=== PATIENT | male | born 1980 | race Caucasian/White ===

== ENCOUNTER 2019-04-11 19:21 | Observation (INO) | payer BC ==
[~2019-04-11 19:21] MED LIST: Iopamidol-370 76% 500 ML 1 ML ONE
[2019-04-11 20:56] LABS: #Eosinphils 0.1 thou/uL (0.0-0.7); #Lymphocytes 1.5 thou/uL (1.20-3.40); #Monocytes 0.3 thou/uL (0.11-0.59); %Basophils 0.9 % (0.0-1.0); %Eosinophils 1.1 % (0.0-10.0); %Lymphocytes 29.8 % (21.0-51.0); %Monocytes 6.7 % (0.0-10.0); %Neutrophils 61.5 % (42.0-75.0); Hemoglobin 14.5 g/dL (14.0-18.0); Mean Corpuscular HGB CONC 34.8 g/dL (32.0-36.0); Mean Corpuscular Hemoglobin 30.8 pg (27.0-31.0); Mean Corpuscular Volume 88.4 fL (78.0-98.0); Mean Platelet Volume 7.5 fL (7.4-10.4); Platelet Count 229 thou/uL (130-400); RBC Distribution Width 11.8 % (11.5-14.5); Red Blood Cell (RBC) Count 4.71 mill/uL (4.70-6.10); White Blood Cell (WBC) Count 4.9 thou/uL (4.8-10.8)
[2019-04-11 21:03] LABS: INR-International Normal Ratio 0.9; PTT 29.3 SEC (22.9-36.1)
--- NOTE | 2019-04-11 21:07 | CT ---
CT HEAD WITHOUT IV CONTRAST COMPARISON: None HISTORY: Stroke/akathisia. Blurry vision and loss of words at 1300 hours today. Headache. Patient states all symptoms of now resolved. TECHNIQUE: Axial CT imaging at 5 mm intervals from vertex through skull base without contrast FINDINGS: There is no evidence of an acute infarction, hemorrhage, mass effect, or midline shift. There is incr eased density posterior fossa which is most likely related to the tentorium. This has a symmetric appearance and is not thought to be related to subdural hemorrhage. A rounded low-attenuation areas s een within the donna centrally. This is felt to most likely be artifactual and is only seen on single slice thickness. The ventricular system is normal in size, shape, and position. Visualized paranasal sinuses are clear. Osseous structures appear intact. IMPRESSION: 1. No acute intracranial abnormality demonstrated. 2. Low-attenuation area in the central donna felt to most likely be artifactual. However, if patient's symptoms persist, follow-up MRI brain is recommended. 3. Above findings discussed with Dr. Arriaga in the emergency department on 04/11/2019 at 2102 hours.
[2019-04-11 21:11] LABS: ALT (SGPT) 21 U/L (8-55); AST (SGOT) 34 U/L (5-34); Albumin 4.5 g/dL (3.5-5.0); Alkaline Phosphatase 47 U/L (40-110); Anion Gap 12 mmol/L (10-20); BUN (Urea Nitrogen) 26 mg/dL (8.9-20.6); Bilirubin, Total 0.3 mg/dL (0.2-1.2); CK (CPK) 366 U/L (30-200); Calc. Creatinine Clearance 0 mL/min (70-130); Calcium 9.1 mg/dL (7.8-10.44); Carbon Dioxide 22 mmol/L (22-29); Chloride 106 mmol/L (98-107); Estimated GFR-MDRD 59; Globulin 2.5 g/dL (2.4-3.5); Glucose 158 mg/dL (70-105); Potassium 3.3 mmol/L (3.5-5.1); Sodium 137 mmol/L (136-145)
[2019-04-11 21:11] LABS: Acetaminophen Less than 6.0 mcg/mL (10.0-30.0); Alcohol Less than 10 mg/dL (Less than 10); Salicylate Less than 8.0 mg/dL (15.0-30.0)
--- NOTE | 2019-04-11 21:23 | CT ---
EXAM: CT angiogram head and neck with IV contrast and 3-D reconstructions PROVIDED CLINICAL HISTORY: Patient with blurry vision and loss of words around 1300 hours today. Patient reports headache. Patie nt now states symptoms have resolved. COMPARISON: None FINDINGS: There is a common origin of the innominate artery and left common carotid artery each of which appear s patent. Right subclavian artery is not well evaluated due to artifact due to dense contrast in the subclavian vein. There is also limited evaluation of the proximal right common carotid artery aga in related to dense contrast in the venous structures resulting in artifact. Remainder of the right common carotid artery is patent. The left common carotid artery as well as left subclavian artery are patent. Bilateral internal and external carotid arteries are patent. Right vertebral artery is dominant. The vertebral arteries are patent bilaterally. The basilar artery is generally small in caliber but patent. Posterior cerebral arteries are patent b ilaterally. Posterior communicating arteries are small in size but do appear patent as well. Bilateral middle cerebral and anterior cerebral arteries are patent. No focal stenosis or branch occl usion is appreciated. No definite aneurysm is visualized. The dural venous sinuses are patent. On noncontrasted CT scan exam, there was suggestion of a rounded low density area seen within the geovanni s which is not visualized on this exam and was likely artifactual on the noncontrast CT head as previously suggested. Visualized upper lung zones are clear. A tiny subcentimeter hypodense nodule is seen in the left lobe of the thyroid gland. The bilateral parotid and submandibular glands are normal in appearance. Minimal mucosal thickening is seen in the right maxillary antrum. IMPRESSION: 1. Tiny hypodense nodule left lobe of thyroid gland. Nonemergent thyroid ultrasound is suggested for further evaluation. 2. Patent bilateral internal carotid arteries. 3. Patent bilateral vertebral arteries, and the right vertebral artery is dominant. 4. [place] [facility] [place] and vertebrobasilar system appear patent. No focal stenosis or branch occlusion i s appreciated. Above findings discussed Dr. Arriaga in the emergency department on 04/11/2019 at 2119 hours
[2019-04-11] MEDS ORDERED: Aspirin Chewable 81 MG TAB ONE (21:31)
[2019-04-11 21:51] LABS: Amphetamine Not Detected (NotDetected); Barbiturates Screen Not Detected (NotDetected); Benzodiazepine Screen Not Detected (NotDetected); Cocaine Metabolite Screen Not Detected (NotDetected); Medtox Reader # READER 1; Methadone Not Detected (NotDetected); Methamphetamine Not Detected (NotDetected); Opiate Screen Not Detected (NotDetected); Phencyclidine (PCP) Not Detected (NotDetected); THC/Cannabinoid Screen Not Detected (NotDetected); Tricyclic Screen Not Detected (NotDetected)
[2019-04-11 21:52] LABS: Medtox Control Line Valid? VALID (VALID); Oxycodone Screen Not Detected (NotDetected)
--- NOTE | 2019-04-11 22:00 | PDOC.FPRHP ---
- History of Present Illness Chief Complaint: slurred speak and difficulty with words lasting 45 minutes History of Present Illness: 38 y/o M with no diagnosed medical problems who does not see a physician regularly, presents to the ED after a 45 minute episode at work with difficultly findings words as well as slurred speech. PT had blurred vision during this episode. He could not recognize where he was located and felt confused during that time. C/o faint COOK since the episode ended. Improved with pain medications in ER. Denies LH/dzziness, CP, SOB, N/V. Pt c/o of several week hx of off/on R arm numbness and weakness. He thinks this is trouble with "tendons," and states he has had trouble with grasping a ball. ED course: given ASA CTA head: no occlusive vessels visualized in B carotids, vertebral arteries, or [place]. Tiny hypodense nodule on L lobe of thyroid needing outpt f/o with ultrasound. CT head: low attenuation are in central donna, most likely artifact, but needs MRI f/o. No acute findings. - Allergies/Adverse Reactions Allergies Allergy/AdvReac Type Severity Reaction Status Date / Time No Known Allergies Allergy Verified 04/12/19 01:55 - History PMHx: no known medical problems PSHx: none FHx: Father: HTN Social: Drinks 6-9 beer and one pint of whiskey 4 times per week. Denies tobacco or drug use. 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 - Review of Systems General: denies: fever/chills, weight/appetite/sleep changes Eyes: reports: vision changes (blurred). denies: eye pain ENT: denies: nasal congestion Respiratory: denies: cough, shortness of breath Cardiovascular: denies: chest pain, palpitation, edema Gastrointestinal: denies: nausea, vomiting, diarrhea, abdominal pain Genitourinary: denies: dysuria Skin: denies: rashes, lesions Musculoskeletal: denies: pain Neurological: reports: numbness (RUE), weakness (RUE). denies: syncope, seizure - Vital signs BP: 160/53 HR: 70 RR: 19 Tmax: 97.5 Pox: 98% on RA Wt: 117 kg - Physical Exam Constitutional: NAD, awake, alert and oriented, well developed HEENT: normocephalic and atraumatic, PERRLA, EOMI, conjunctiva clear, no scleral icterus, grossly normal vision, grossly normal hearing, MMM, oropharynx clear, good dention Neck: supple, FROM, trachea midline, no LAD, no JVD, no thyromegaly Chest: no-tender to palpation Heart: RRR, normal S1/S2, pulses present, no edema -Heart: soft sys murmur Lungs: CTAB, no respiratory distress, good air movement, no rales/rhonchi, no wheezing, no retractions Abdomen: soft, non-tender, bowel sounds present, no masses/distention, no hernias Musculoskeletal: normal structure, normal tone, ROM grossly normal Neurological: no focal deficit, CN II-XII intact, normal sensation, DTRs 2+, other (intact [id number], [id number] No dysdiadacokinesia) Skin: no rash/lesions, good turgor, capillary refill <2 seconds Heme/Lymphatic: no unusual bruising or bleeding, no purpura, no petechia Psychiatric: normal mood and affect, good judgment and insight, intact recent and remote memory FMR H&P: Results - Labs Result Diagrams: 04/12/19 07:31 04/12/19 07:31 Lab results: WBC 4.9 thou/uL (4.8-10.8) 04/11/19 20:44 Hgb 14.5 g/dL (14.0-18.0) 04/11/19 20:44 Hct 41.6 % (42.0-52.0) L 04/11/19 20:44 MCV 88.4 fL (78.0-98.0) 04/11/19 20:44 Plt Count 229 thou/uL (130-400) 04/11/19 20:44 Neutrophils % 61.5 % (42.0-75.0) 04/11/19 20:44 Sodium 137 mmol/L (136-145) 04/11/19 20:44 Potassium 3.3 mmol/L (3.5-5.1) L 04/11/19 20:44 Chloride 106 mmol/L (98-107) 04/11/19 20:44 Carbon Dioxide 22 mmol/L (22-29) 04/11/19 20:44 BUN 26 mg/dL (8.9-20.6) H 04/11/19 20:44 Creatinine 1.36 mg/dL (0.7-1.3) H 04/11/19 20:44 Glucose 158 mg/dL (70-105) H 04/11/19 20:44 Calcium 9.1 mg/dL (7.8-10.44) 04/11/19 20:44 Total Bilirubin 0.3 mg/dL (0.2-1.2) 04/11/19 20:44 AST 34 U/L (5-34) 04/11/19 20:44 ALT 21 U/L (8-55) 04/11/19 20:44 Alkaline Phosphatase 47 U/L (40-110) 04/11/19 20:44 Creatine Kinase 366 U/L (30-200) H 04/11/19 20:44 Serum Total Protein 7.0 g/dL (6.0-8.3) 04/11/19 20:44 Albumin 4.5 g/dL (3.5-5.0) 04/11/19 20:44 - Radiology Interpretation CT scan - head Status: report reviewed by me (No acute findings. Hypodensity in donna. No occlusive vessles on CTA head.) FMR H&P: A/P - Problem List (1) TIA (transient ischemic attack) Current Visit: Yes Status: Acute Code(s): G45.9 - TRANSIENT CEREBRAL ISCHEMIC ATTACK, UNSPECIFIED (2) Elevated BP without diagnosis of hypertension Current Visit: Yes Status: Acute Code(s): R03.0 - ELEVATED BLOOD-PRESSURE READING, W/O DIAGNOSIS OF HTN (3) Aphasia Current Visit: Yes Status: Resolved Code(s): R47.01 - APHASIA - Plan 38 y/o M admitted to stroke obs for evaluation of Possible TIA/rule out stroke. 1. Resolved global aphasia attack lasting 45 minutes - mixed broca and wernicke's aphasia, now resolved - CTA head: patent B carotids, vertebral arteries, and [place] - CT head: No acute process - Ordered MRI and TTE - Ordered TSH, A1C and FLP 2. Elevated BP without the dx of HTN - Will allow for permissive HTN for 48 hrs post event. - Monitor vitals Q4H - Consider d/c on medication if consistently elevated. 3. Alcohol abuse - ASE protocol, Ativan 1 mg PRN Q6H for alcohol withdrawal Code status: full code Diet: regular diet dvt ppx: SCD's Dispo: stable, admit to stroke obs for TIA stroke r/o. FMR H&P: Upper Level - Plan Date/Time: 04/11/19 2200 I, Viktor Garcia MD, have evaluated this patient and agree with findings/ plan as outlined by unpaid intern resident. Pertinent changes/additions are listed here. CVA vs TIA - CT/CTA negative in ED - Neuro checks - MRI ordered for AM - Permissive HTN - Obtain risk stratification labs HTN - Allow permissive HTN 220/110 for first 24-48 hours if CVA occurred - Likely will need outpatient follow up. CODE STATUS: FULL CODE PCP: CC - None Disposition: Stable, will admit to Stroke Observation for MRI imaging. Addendum - Attending - Attending Attestation Date/Time: 04/12/19 0900 I personally evaluated the patient and discussed the management with Dr. Garcia and David on 04/10. I agree with the History, Examination, Assessment and Plan documented above with any addition or exceptions noted below. No symptoms and unremarkable exam on my evaluation. He did have a headache after the aphasia and blurry vision stopped, which was unilateral, aching. He was not sure if it was associated with photophobia. Complete workup for possible TIA, must also consider a headache syndrome as well.
[2019-04-11] MEDS ORDERED: Lorazepam 2 MG/ML VIAL SLOW IVP PRN (22:52)
[2019-04-12 02:38] VITALS: BMI 36.7
--- NOTE | 2019-04-12 07:15 | PDOC.FM ---
- Subjective Subjective: NAEO. Patient resting comfortably in bed. States all of his symptoms have resolved. He states the entire episode lasted about 45 min - couldnt get out his words, blurred vision. He states this has all resolved. This has never happened to him before. He states that when he stood up in his room he didnt feel any dizziness or instability. He is speaking normally per patient and family. Denies any blurred vision. Denies any weakness, numbness or tingling in any extremities. - Objective MAR Reviewed: Yes Vital Signs & Weight: Vital Signs (12 hours) Temp Pulse Resp BP Pulse Ox 04/12/19 03:48 97.9 F 58 L 16 138/55 L 94 L 04/11/19 23:39 98.4 F 57 L 16 146/69 H 98 Weight Weight 116.12 kg Result Diagrams: 04/12/19 07:31 04/12/19 07:31 Phys Exam - Physical Examination Constitutional: NAD HEENT: PERRLA, moist MMs, sclera anicteric Neck: supple, full ROM Respiratory: clear to auscultation bilateral Cardiovascular: RRR Gastrointestinal: soft Musculoskeletal: no edema Neurological: non-focal, normal sensation, moves all 4 limbs CN II- XII intact, normal 5/5 strength in all extremities Psychiatric: normal affect, A&O x 3 Skin: no rash, normal turgor, cap refill <2 seconds Dx/Plan (1) Elevated BP without diagnosis of hypertension Code(s): R03.0 - ELEVATED BLOOD-PRESSURE READING, W/O DIAGNOSIS OF HTN Status : Acute (2) TIA (transient ischemic attack) Code(s): G45.9 - TRANSIENT CEREBRAL ISCHEMIC ATTACK, UNSPECIFIED Status: Acute (3) Aphasia Code(s): R47.01 - APHASIA Status: Resolved - Plan Plan: CVA vs TIA Patient with dysphagia episode lasting 45min. CT brain showing low- attenuation in the central donna. CTA negative for stenosis. - Neuro checks - MRI and echo pending; will f/u results - Permissive HTN - FLP TG 189, Chol 214, LDL 122, HDL 54 - ASCVD 1.4%. TSH normal. HTN - Likely will need outpatient follow up, can consider starting amlodipine if BPs remain high - Currently allowing for permissive HTN Alcohol Abuse - ASE protocol CODE STATUS: FULL CODE Diet: Reg VTE: lovenox PCP: CC - None Disposition: Stable, if imaging nml likely dc, if abnormal will stay for further management Case discussed with Dr. Barba Addendum - Attending - Attending Attestation Date/Time: 04/12/19 1100 I personally evaluated the patient and discussed the management with Dr. Weller. I agree with the History, Examination, Assessment and Plan documented above with any addition or exceptions noted below. MRI negative. TTE pending. Given his age, will consult cardiology to see if bubble study would be indicated. patient also having periodic runs of sinus bradycardia on tele into low 40s. Appears asymptomatic. Dispo pending recommendations from cardiology. Continue ASA, start amlodipine for BP control as MRI was negative for acute CVA.
[2019-04-12] MEDS ORDERED: Potassium Chloride 20 MEQ TAB PO SCH (07:30)
[2019-04-12 07:36] LABS: #Eosinphils 0.1 thou/uL (0.0-0.7); #Lymphocytes 1.1 thou/uL (1.20-3.40); #Monocytes 0.4 thou/uL (0.11-0.59); #Neutrophils 2.2 thou/uL (1.40-6.50); %Basophils 0.7 % (0.0-1.0); %Eosinophils 1.8 % (0.0-10.0); %Lymphocytes 29.2 % (21.0-51.0); %Monocytes 10.6 % (0.0-10.0); %Neutrophils 57.7 % (42.0-75.0); Hemoglobin 13.8 g/dL (14.0-18.0); Mean Corpuscular HGB CONC 35.5 g/dL (32.0-36.0); Mean Corpuscular Hemoglobin 30.9 pg (27.0-31.0); Platelet Count 195 thou/uL (130-400); RBC Distribution Width 11.8 % (11.5-14.5); Red Blood Cell (RBC) Count 4.47 mill/uL (4.70-6.10); White Blood Cell (WBC) Count 3.8 thou/uL (4.8-10.8)
[2019-04-12 07:49] LABS: Anion Gap 10 mmol/L (10-20); BUN (Urea Nitrogen) 21 mg/dL (8.9-20.6); Calc. Creatinine Clearance 147 mL/min (70-130); Calcium 8.9 mg/dL (7.8-10.44); Carbon Dioxide 23 mmol/L (22-29); Chloride 108 mmol/L (98-107); Estimated GFR-MDRD 73; Glucose 101 mg/dL (70-105); Potassium 3.8 mmol/L (3.5-5.1); Sodium 137 mmol/L (136-145)
[2019-04-12 07:58] VITALS: TEMP 98
--- NOTE | 2019-04-12 08:54 | MRI ---
MRI BRAIN WITH AND WITHOUT CONTRAST: DATE: 04/12/2019 HISTORY: 37-year-old male with aphasia and blurry vision TECHNIQUE: Multiplanar, multisequence MRI of the brain obtained pre and post IV injection of gadolinium based co ntrast agent. FINDINGS: The ventricles are normal in size and configuration. There is no midline shift or any other evidence of mass effect. There is no extra-axial fluid collection. There is no intra-axial signal abnormality, abnormal enhancement, mass, recent hemorrhage, or restricted diffusion. IMPRESSION: Normal
[2019-04-12] MEDS ORDERED: Aspirin 325 MG TAB PO SCH (09:00)
[2019-04-12] MEDS ORDERED: Aspirin 81 mg Enteric Coated Tablet PO SCH (09:00)
[2019-04-12] MEDS ORDERED: Amlodipine 10 MG TAB PO SCH (10:45)
[2019-04-12 11:23] VITALS: BP 141/66
[2019-04-12] MEDS ORDERED: Magnevist 469MG/ML 20 ML VIAL ONE (14:49)
--- NOTE | 2019-04-12 23:57 | CON ---
DATE OF CONSULTATION: 04/12/2019 CONSULTING PHYSICIAN: [facility]. IMPRESSION: Probable complex migraine. PLAN: The patient can be discharged at your discretion. HISTORY OF PRESENT ILLNESS: Mr. Estrada is a 38-year-old man who presented with complaints of acute onset of trouble finding his words and feeling a bit confused. This went on for about 45 minutes. Following this, he started developing a low-grade headache. Headache lasted for several hours. He came into the ER. His CT of the brain was negative. He has since had an MRI of the brain, which is also normal. His tox screen was negative. His vital signs have been stable. He has been afebrile. CT angiogram of the major vessels was all clear. Echocardiogram showed a normal ejection fraction of 60% to 65%. He denies a past history of migraines. He has been under a fair amount of stress lately. He does not use any drugs. PAST MEDICAL HISTORY: Otherwise negative. ALLERGIES: NONE. SOCIAL HISTORY: Some alcohol use. FAMILY HISTORY: Unremarkable. REVIEW OF SYSTEMS: Ten-system review of systems is otherwise negative. PHYSICAL EXAMINATION: VITAL SIGNS: Blood pressure 144/65, pulse 57, respirations 10, and temperature 98. HEENT: Pupils equal and reactive. Conjunctivae clear. Oropharynx clear. NECK: Supple. EXTREMITIES: No cyanosis, clubbing, or edema. NEUROLOGIC: He is alert and appropriate. His speech is fluent and clear. His exam is nonfocal. IMAGING: Reviewed. EKG shows sinus bradycardia. SUMMARY: Given the constellation of transient neurologic symptoms and headache, it was fairly persistent without evidence of a hemorrhage. Clinical picture is most consistent with a migraine. I do not see anything further that needs to be done. Job ID: [id number]
[2019-04-13] MEDS ORDERED: Amlodipine 5 MG TAB PO SCH (09:00)
--- NOTE | 2019-04-13 13:30 | DIS ---
DATE OF ADMISSION: 04/11/2019 DATE OF DISCHARGE: 04/12/2019 RESIDENT: Delisa Weller MD ADMITTING ATTENDING: Frank Driver MD DISCHARGE ATTENDING: Jose Barba MD CONSULTS: Neurology, PT/OT. PROCEDURES PERFORMED: 1. Brain CT on 04/11/2019, showing no acute abnormality, low attenuation area in the central donna, likely to be artifactual. 2. CTA on 04/11/2019, showing tiny hypodense left nodule of the thyroid gland, no stenosis in any vessels. 3. Echocardiogram on 04/12/2019, showing ejection fraction 60% to 65%, trace tricuspid regurg. 4. Brain MRI on 04/12/2019, showing no acute process. PRIMARY DIAGNOSES: 1. Complex migraine. 2. Hypertension. SECONDARY DIAGNOSIS: 1. Alcohol abuse. DISCHARGE MEDICATIONS: 1. Norvasc 5 mg oral daily. 2. Aspirin 81 mg oral daily. DISCONTINUED MEDICATIONS: None. HISTORY OF PRESENT ILLNESS/HOSPITAL COURSE: This is a 38-year-old male with no known medical problems, but does not see a physician regularly, presented to the ER after 45 minutes episode at work of difficulty finding words as well as slurred speech. The patient also endorsed blurry vision at the time of episode and felt confused. The patient noted faint headache since the episode ended, which improved with pain medications given in the ER. The patient has also noted several weeks off and on right arm numbness and weakness. In the ER, the patient was given aspirin. He was admitted for further workup on the stroke unit. The patient's vital sign showed elevated blood pressure of 160/53 on presentation. The patient's imaging showed low attenuation on his CT brain in the central donna. The patient's MRI, as well as the echocardiogram were normal. The patient had a fasting lipid panel done, which showed an ASCVD risk of 1.3%, so statin was not indicated. The patient's A1c came back normal, as well as his TSH. Neurology had been consulted from the ER , who felt that the patient's symptoms were likely due to complex migraine. Per Neurology, they did not feel that JORGE was necessary to evaluate for PFO as the patient's echo and MRI had been normal. I discussed with the patient that if he has any similar symptoms, to follow up with [facility] at our clinic. He was agreeable to this. For the patient's elevated blood pressure, he was started on amlodipine 5 mg daily. He will need to follow up in clinic to monitor this as well. DISPOSITION: Stable. DISCHARGE INSTRUCTIONS: 1. Location: Home. 2. Diet: Regular. 3. Activity: Ad mayte. 4. Followup: Follow up at [facility] within one week. Patient given info for our clinic to f/u. Job ID: [id number] MTDD
--- NOTE | 2019-04-16 18:22 | EKG ---
Test Reason : Blood Pressure : / mmHG Vent. Rate : 054 BPM Atrial Rate : 054 BPM P-R Int : 214 ms QRS Dur : 114 ms QT Int : 424 ms P-R-T Axes : 000 028 005 degrees QTc Int : 402 ms Sinus bradycardia with 1st degree A-V block Otherwise normal ECG Confirmed by JOE MICHAUD ([id number]), videotape editor REEMA GREEN ([id number]) on 04/16/2019 6:22:18 PM Referred By: JASWANT Confirmed By:JOE MICHAUD
== END 2019-04-12 19:48 | disposition home or self-care (01) ==
LOC: ERS 19:21 → 2SE 22:00
PROVIDERS: ADMIT Emergency Medicine; ATTEND Emergency Medicine
DX: G43.809 Other migraine, not intractable, without status migrainosus (principal); F80.2 Mixed receptive-expressive language disorder; I10 Essential (primary) hypertension; F10.10 Alcohol abuse, uncomplicated
CPT/HCPCS: 36415; 36416; 70450; 70496; 70498; 70553; 80048; 80053; 80061; 80306; 80307; 82550; 83036; 84146; 84443; 84484; 85025; 85610; 85730; 93005; 93306; A9579; G0378; Q9967